=== PATIENT | female | born 1980 | race Caucasian/White ===

== ENCOUNTER 2022-12-01 12:44 | Emergency (ER) | payer BC ==
[2022-12-01] MEDS ORDERED: Benzocaine 20% Topical Spray UD MUCMEM ONE (13:40)
[2022-12-01] MEDS ORDERED: Lidocaine 2% Viscous Solution 15 ML UD PO ONE (13:40)
== END 2022-12-01 14:26 | disposition home or self-care (01) ==
LOC: MW.ED 12:44
DX: S93.401A Sprain of unspecified ligament of right ankle, initial encounter (principal); K04.7 Periapical abscess without sinus; Z88.7 Allergy status to serum and vaccine; X50.1XXA Overexertion from prolonged static or awkward postures, initial encounter
CPT/HCPCS: 73610; 73620; 99283; A9270